=== PATIENT | male | born 1950 | race Caucasian/White ===

== ENCOUNTER 2020-06-30 13:10 | Inpatient (IN) | payer OTHER ==
[~2020-06-30] VITALS: Ht 177.8 cm; Wt 104.5 kg
[2020-06-30 14:41] LABS: Basophils # (auto) 0.1 10 ^3/uL (0-0.2)
[2020-06-30 14:43] LABS: Basophils % (auto) 0.8 % (0.0-2.0); Eosinophils # (auto) 0.1 10 ^3/uL (0-0.8); Eosinophils % (auto) 0.4 % (0.0-7.0); Hematocrit 52.4 % (41.0-53.0); Hemoglobin 17.6 g/dL (13.5-17.5); Lymphocytes # (auto) 1.3 10 ^3/uL (0.4-5.4); Lymphocytes % (auto) 9.7 % (10.0-50.0); Mean Corpuscular Hemoglobin 34.5 pg (28.0-32.0); Mean Corpuscular Hgb Conc. 33.7 g/dL (32.0-36.0); Mean Corpuscular Volume 102.7 fL (80.0-100.0); Monocytes # (auto) 0.9 10 ^3/uL (0-1.3); Monocytes % (auto) 6.7 % (0.0-12.0); Neutrophils % (auto) 82.4 % (37.0-80.0); Nucleated Red Blood Cells % 0.6 %; Platelet Count (auto) 207 10^3/uL (140-450); Red Blood Cells 5.11 10^6/uL (4.5-5.90); Red Cell Distribution Width 14.2 % (11.8-14.3); White Blood Cell 13.3 10^3/uL (4.4-10.8)
[2020-06-30 14:48] LABS: INR 1.24 (0.9-1.15)
[2020-06-30 15:09] LABS: Anion Gap 10 (5-15); Blood Alcohol < 3.0 mg/dL (0-5); Blood Urea Nitrogen 76 mg/dL (7-18); Calcium 8.7 mg/dL (8.5-10.1); Carbon Dioxide 23 mmol/L (21-32); Chloride 135 mmol/L (98-107); Glucose 126 mg/dL (74-106); Magnesium 2.9 mg/dL (1.6-2.6); Potassium 3.6 mmol/L (3.5-5.1)
[2020-06-30 15:13] LABS: Lactic Acid w/Reflex 2.6 mmol/L (0.4-2.0)
[2020-06-30 15:16] LABS: Alanine Aminotransferase 59 U/L (16-61); Alkaline Phosphatase 66 U/L (45-117); Aspartate Aminotransferase 47 U/L (15-37); Bilirubin, Total 0.9 mg/dL (0.2-1.0); Creatine Kinase IFCC 344 U/L (39-308); GFR African American 45 mL/min; GFR Non-African American 37 mL/min
[2020-06-30 15:19] LABS: Sodium 168 mmol/L (136-145)
[2020-06-30] MEDS ORDERED: PIPERACILLIN-TAZOB 3.375GM 100 ML IV ONE (15:45)
[2020-06-30] MEDS ORDERED: SODIUM CHLORIDE 0.9% 1,000 ML IV ONE (15:45)
[2020-06-30] MEDS ORDERED: ASPirin 325 MG TAB PO ONE (15:45)
[2020-06-30] MEDS ORDERED: NITROGLYCERIN 0.4 MG SL TAB SL PRN (16:45)
[2020-06-30] MEDS ORDERED: MORPHINE SULF INJ 2 MG/ML SYRINGE 1ML IV PRN ×2 (16:45→17:15)
[2020-06-30] MEDS ORDERED: TEMAZEPAM 15 MG CAP PO PRN (17:15)
[2020-06-30] MEDS ORDERED: ONDANSETRON HCL 4 MG/2 ML VIAL IV PRN (17:15)
[2020-06-30] MEDS ORDERED: traMADol HCL 50 MG TAB PO PRN (17:15)
[2020-06-30] MEDS: SOD CHL 0.45% 1,000 ML IV SCH (17:15)
[2020-06-30] MEDS ORDERED: ACETAMINOPHEN 500 MG TAB PO PRN (17:15)
[2020-06-30 17:42] LABS: Urine Bacteria FEW /hpf (None Seen); Urine Blood 1+ /uL (Negative); Urine Hyaline Cast MOD /lpf (0 - 2); Urine Mucus FEW (None Seen); Urine Specific Gravity 1.028 (1.001-1.035); Urine WBC 19 /hpf (0 - 3)
[2020-06-30 18:05] LABS: Amphetamine Screen, Urine NEGATIVE (NEGATIVE); Barbiturate Scree,Urine NEGATIVE (NEGATIVE); Benzodiazephine Screen, Urine NEGATIVE (NEGATIVE); Cannabinoid Screen, Urine NEGATIVE (NEGATIVE); Cocaine Screen, Urine NEGATIVE (NEGATIVE); Opiate Scree,Urine NEGATIVE (NEGATIVE); Phencyclidine Screen, Urine NEGATIVE (NEGATIVE)
[2020-06-30] MEDS: CLINDAMYCIN 600MG IV 50 ML IV SCH (19:39)
[2020-06-30] MEDS: FAMOTIDINE 20 MG TAB PO SCH (22:00)
[2020-07-01] MEDS: SOD CHL 0.45% 1,000 ML IV SCH ×3 (03:15→23:15)
[2020-07-01] MEDS: CLINDAMYCIN 600MG IV 50 ML IV SCH ×3 (06:00→22:00)
[2020-07-01 06:19] LABS: Basophils # (auto) 0.1 10 ^3/uL (0-0.2); Basophils % (auto) 0.5 % (0.0-2.0); Eosinophils # (auto) 0.1 10 ^3/uL (0-0.8); Eosinophils % (auto) 0.4 % (0.0-7.0); Hemoglobin 17.1 g/dL (13.5-17.5); Lymphocytes # (auto) 1.5 10 ^3/uL (0.4-5.4); Mean Corpuscular Hemoglobin 34.5 pg (28.0-32.0); Mean Corpuscular Hgb Conc. 33.6 g/dL (32.0-36.0); Mean Corpuscular Volume 102.7 fL (80.0-100.0); Monocytes % (auto) 6.4 % (0.0-12.0); Neutrophils # (auto) 12.3 10 ^3/uL (1.6-8.6); Neutrophils % (auto) 82.7 % (37.0-80.0); Nucleated Red Blood Cells % 0.5 %; Platelet Count (auto) 153 10^3/uL (140-450); Red Blood Cells 4.96 10^6/uL (4.5-5.90); Red Cell Distribution Width 14.3 % (11.8-14.3); White Blood Cell 14.9 10^3/uL (4.4-10.8)
[2020-07-01 06:36] LABS: Albumin 2.8 g/dL (3.4-5.0); Calcium 8.5 mg/dL (8.5-10.1); Potassium 3.7 mmol/L (3.5-5.1)
[2020-07-01 06:42] LABS: Bilirubin, Total 1.1 mg/dL (0.2-1.0); Total Protein 6.4 g/dL (6.4-8.2)
[2020-07-01 06:49] LABS: BUN/Creatinine Ratio 36.5
[2020-07-01] MEDS: cefTRIAXone 1GM/50ML D5W 50 ML IV SCH (08:09)
[2020-07-01] MEDS: ASPirin 81 mg TAB PO SCH (08:09)
[2020-07-01] MEDS: FAMOTIDINE 20 MG TAB PO SCH (08:10)
[2020-07-01] MEDS ORDERED: THIAMINE 100mg/ml INJ (200mg/2ml VIAL) IM ONE (16:15)
[2020-07-01] MEDS ORDERED: LORazepam 2MG/ML-1ML VIAL IV PRN (16:15)
[2020-07-01 16:48] LABS: Cholesterol 121 mg/dL (< 200)
[2020-07-01 16:50] LABS: HDL Cholesterol 46 mg/dL (40-59); LDL Cholesterol 58 mg/dL (< 100); Triglycerides 165 mg/dL (< 150)
[2020-07-01 16:54] LABS: Folate (Folic Acid) 6.68 ng/mL (5.38-24)
[2020-07-01] MEDS: ATORVASTATIN 20 MG TAB PO SCH (22:00)
[2020-07-01] MEDS: ENOXAPARIN SOD 80 MG/0.8ML SYRINGE SC SCH (23:33)
[2020-07-02] MEDS: CLINDAMYCIN 600MG IV 50 ML IV SCH ×3 (06:15→23:41)
[2020-07-02] MEDS: ENOXAPARIN SOD 80 MG/0.8ML SYRINGE SC SCH ×2 (09:37→23:41)
[2020-07-02] MEDS: FAMOTIDINE 20 MG TAB PO SCH (09:37)
[2020-07-02] MEDS: cefTRIAXone 1GM/50ML D5W 50 ML IV SCH (09:37)
[2020-07-02] MEDS: ASPirin 81 mg TAB PO SCH (09:37)
[2020-07-02] MEDS: SOD CHL 0.45% 1,000 ML IV SCH ×3 (09:37→19:00)
[2020-07-02] MEDS ORDERED: SOD CHL 0.45% 1,000 ML IV SCH (10:15)
[2020-07-02 10:32] LABS: Basophils % (auto) 0.4 % (0.0-2.0); Eosinophils # (auto) 0.2 10 ^3/uL (0-0.8); Eosinophils % (auto) 1.4 % (0.0-7.0); Hemoglobin 15.7 g/dL (13.5-17.5); Mean Corpuscular Hemoglobin 34.3 pg (28.0-32.0); Platelet Count (auto) 109 10^3/uL (140-450)
[2020-07-02 10:34] LABS: Basophils # (auto) 0.1 10 ^3/uL (0-0.2); Hematocrit 47.1 % (41.0-53.0); Lymphocytes # (auto) 1.8 10 ^3/uL (0.4-5.4); Mean Corpuscular Hgb Conc. 33.3 g/dL (32.0-36.0); Mean Corpuscular Volume 103.2 fL (80.0-100.0); Monocytes # (auto) 0.7 10 ^3/uL (0-1.3); Monocytes % (auto) 6.2 % (0.0-12.0); Neutrophils # (auto) 9.2 10 ^3/uL (1.6-8.6); Nucleated Red Blood Cells % 0.3 %; Red Blood Cells 4.57 10^6/uL (4.5-5.90); Red Cell Distribution Width 14.7 % (11.8-14.3)
[2020-07-02 10:45] LABS: Albumin 2.4 g/dL (3.4-5.0); Calcium 7.3 mg/dL (8.5-10.1); Potassium 3.6 mmol/L (3.5-5.1)
[2020-07-02 10:48] LABS: BUN/Creatinine Ratio 38.7; Bilirubin, Total 0.9 mg/dL (0.2-1.0); Total Protein 6.1 g/dL (6.4-8.2)
[2020-07-02] MEDS: SILVER SULFADIAZINE 1 % TOPICAL CREAM 50GM TOP SCH (10:57)
[2020-07-02] MEDS: ATORVASTATIN 20 MG TAB PO SCH (23:41)
[2020-07-03] MEDS: SOD CHL 0.45% 1,000 ML IV SCH ×5 (02:45→22:01)
[2020-07-03] MEDS: CLINDAMYCIN 600MG IV 50 ML IV SCH ×3 (06:38→22:01)
[2020-07-03 07:08] LABS: Basophils # (auto) 0 10 ^3/uL (0-0.2); Eosinophils # (auto) 0.3 10 ^3/uL (0-0.8); Hemoglobin 13.9 g/dL (13.5-17.5); Mean Corpuscular Volume 102.1 fL (80.0-100.0); Monocytes # (auto) 0.6 10 ^3/uL (0-1.3); Monocytes % (auto) 6.3 % (0.0-12.0)
[2020-07-03 07:12] LABS: Basophils % (auto) 0.2 % (0.0-2.0); Eosinophils % (auto) 3.6 % (0.0-7.0); Hematocrit 41.3 % (41.0-53.0); Lymphocytes % (auto) 21.3 % (10.0-50.0); Mean Corpuscular Hemoglobin 34.4 pg (28.0-32.0); Mean Corpuscular Hgb Conc. 33.7 g/dL (32.0-36.0); Neutrophils # (auto) 6.4 10 ^3/uL (1.6-8.6); Neutrophils % (auto) 68.6 % (37.0-80.0); Nucleated Red Blood Cells % 0.6 %; Platelet Count (auto) 96 10^3/uL (140-450); Red Blood Cells 4.04 10^6/uL (4.5-5.90); Red Cell Distribution Width 14.2 % (11.8-14.3); White Blood Cell 9.3 10^3/uL (4.4-10.8)
[2020-07-03 07:34] LABS: Potassium 3.6 mmol/L (3.5-5.1)
[2020-07-03 07:50] LABS: BUN/Creatinine Ratio 31.1; Bilirubin, Total 0.7 mg/dL (0.2-1.0); Calcium 7.4 mg/dL (8.5-10.1)
[2020-07-03] MEDS: FAMOTIDINE 20 MG TAB PO SCH (10:00)
[2020-07-03] MEDS: ENOXAPARIN SOD 80 MG/0.8ML SYRINGE SC SCH ×2 (10:57→22:01)
[2020-07-03] MEDS: SILVER SULFADIAZINE 1 % TOPICAL CREAM 50GM TOP SCH (10:57)
[2020-07-03] MEDS: ASPirin 81 mg TAB PO SCH (10:57)
[2020-07-03] MEDS: cefTRIAXone 1GM/50ML D5W 50 ML IV SCH (10:58)
[2020-07-03 18:34] VITALS: BP 129/62
[2020-07-03 20:00] VITALS: BP 122/63
[2020-07-03 21:54] VITALS: BP 122/63
[2020-07-03] MEDS: ATORVASTATIN 20 MG TAB PO SCH (22:01)
[2020-07-04] MEDS: SOD CHL 0.45% 1,000 ML IV SCH ×5 (03:02→21:20)
[2020-07-04 05:00] VITALS: BP 139/75
[2020-07-04] MEDS: CLINDAMYCIN 600MG IV 50 ML IV SCH ×3 (05:01→21:19)
[2020-07-04 06:33] LABS: Basophils # (auto) 0 10 ^3/uL (0-0.2); Basophils % (auto) 0.5 % (0.0-2.0); Eosinophils # (auto) 0.3 10 ^3/uL (0-0.8); Hematocrit 37.9 % (41.0-53.0); Hemoglobin 12.8 g/dL (13.5-17.5); Lymphocytes # (auto) 1.8 10 ^3/uL (0.4-5.4); Lymphocytes % (auto) 20.3 % (10.0-50.0); Mean Corpuscular Hemoglobin 34.4 pg (28.0-32.0); Mean Corpuscular Hgb Conc. 33.9 g/dL (32.0-36.0); Mean Corpuscular Volume 101.5 fL (80.0-100.0); Monocytes # (auto) 0.6 10 ^3/uL (0-1.3); Monocytes % (auto) 6.3 % (0.0-12.0); Neutrophils # (auto) 6.4 10 ^3/uL (1.6-8.6); Neutrophils % (auto) 69.9 % (37.0-80.0); Nucleated Red Blood Cells % 0.4 %; Platelet Count (auto) 102 10^3/uL (140-450); Red Blood Cells 3.73 10^6/uL (4.5-5.90); Red Cell Distribution Width 14.2 % (11.8-14.3); White Blood Cell 9.1 10^3/uL (4.4-10.8)
[2020-07-04 06:46] LABS: Albumin 1.9 g/dL (3.4-5.0); Calcium 7.2 mg/dL (8.5-10.1); Potassium 3.6 mmol/L (3.5-5.1)
[2020-07-04 06:49] LABS: BUN/Creatinine Ratio 29.7; Bilirubin, Total 0.6 mg/dL (0.2-1.0); Total Protein 4.7 g/dL (6.4-8.2)
[2020-07-04 07:45] VITALS: BP 148/71
[2020-07-04] MEDS: cefTRIAXone 1GM/50ML D5W 50 ML IV SCH (09:15)
[2020-07-04] MEDS: ENOXAPARIN SOD 80 MG/0.8ML SYRINGE SC SCH ×2 (09:15→21:20)
[2020-07-04] MEDS: ASPirin 81 mg TAB PO SCH (09:15)
[2020-07-04] MEDS: SILVER SULFADIAZINE 1 % TOPICAL CREAM 50GM TOP SCH (09:15)
[2020-07-04] MEDS: FAMOTIDINE 20 MG TAB PO SCH (09:15)
[2020-07-04] MEDS: FOLIC ACID 1 MG TAB PO SCH (13:14)
[2020-07-04] MEDS: MULTIPLE VITAMIN TAB PO SCH (13:14)
[2020-07-04] MEDS: THIAMINE HCL 100 MG TAB PO SCH (13:14)
[2020-07-04 15:46] VITALS: BP 131/72
[2020-07-04 20:00] VITALS: BP 154/79
[2020-07-04] MEDS: ATORVASTATIN 20 MG TAB PO SCH (21:19)
[2020-07-04 22:00] VITALS: BP 154/79
[2020-07-05] MEDS: SOD CHL 0.45% 1,000 ML IV SCH ×5 (04:00→23:51)
[2020-07-05 05:00] VITALS: BP 136/71
[2020-07-05 05:57] LABS: Mean Corpuscular Hgb Conc. 34.3 g/dL (32.0-36.0); Nucleated Red Blood Cells % 0.2 %
[2020-07-05 05:59] LABS: Basophils # (auto) 0 10 ^3/uL (0-0.2); Basophils % (auto) 0.5 % (0.0-2.0); Eosinophils # (auto) 0.2 10 ^3/uL (0-0.8); Hematocrit 38.4 % (41.0-53.0); Hemoglobin 13.2 g/dL (13.5-17.5); Lymphocytes # (auto) 1.5 10 ^3/uL (0.4-5.4); Lymphocytes % (auto) 18.5 % (10.0-50.0); Mean Corpuscular Hemoglobin 34.6 pg (28.0-32.0); Mean Corpuscular Volume 100.9 fL (80.0-100.0); Monocytes # (auto) 0.5 10 ^3/uL (0-1.3); Monocytes % (auto) 6.8 % (0.0-12.0); Neutrophils # (auto) 5.7 10 ^3/uL (1.6-8.6); Neutrophils % (auto) 71.2 % (37.0-80.0); Platelet Count (auto) 102 10^3/uL (140-450); Red Blood Cells 3.81 10^6/uL (4.5-5.90); Red Cell Distribution Width 13.7 % (11.8-14.3)
[2020-07-05] MEDS: CLINDAMYCIN 600MG IV 50 ML IV SCH ×3 (06:08→21:12)
[2020-07-05 06:19] LABS: Potassium 3.5 mmol/L (3.5-5.1)
[2020-07-05 06:28] LABS: Albumin 1.9 g/dL (3.4-5.0); BUN/Creatinine Ratio 26.1; Bilirubin, Total 0.6 mg/dL (0.2-1.0); Calcium 7.4 mg/dL (8.5-10.1)
[2020-07-05 08:00] VITALS: BP 126/69
[2020-07-05] MEDS: POTASSIUM CHL 20MEQ/100ML 100 ML IV SCH ×2 (09:15→15:05)
[2020-07-05] MEDS: cefTRIAXone 1GM/50ML D5W 50 ML IV SCH (10:52)
[2020-07-05] MEDS: ASPirin 81 mg TAB PO SCH (10:52)
[2020-07-05] MEDS: SILVER SULFADIAZINE 1 % TOPICAL CREAM 50GM TOP SCH (10:53)
[2020-07-05] MEDS: FAMOTIDINE 20 MG TAB PO SCH (10:53)
[2020-07-05] MEDS: MULTIPLE VITAMIN TAB PO SCH (10:53)
[2020-07-05] MEDS: FOLIC ACID 1 MG TAB PO SCH (10:53)
[2020-07-05] MEDS: THIAMINE HCL 100 MG TAB PO SCH (10:53)
[2020-07-05] MEDS: ENOXAPARIN SOD 80 MG/0.8ML SYRINGE SC SCH ×2 (10:53→21:13)
[2020-07-05 16:00] VITALS: BP 155/75
[2020-07-05 20:00] VITALS: BP 138/78
[2020-07-05] MEDS: ATORVASTATIN 20 MG TAB PO SCH (21:12)
[2020-07-05 22:00] VITALS: BP 138/78
[2020-07-06 05:00] VITALS: BP 156/66
[2020-07-06] MEDS: SOD CHL 0.45% 1,000 ML IV SCH ×4 (05:46→21:12)
[2020-07-06] MEDS: CLINDAMYCIN 600MG IV 50 ML IV SCH ×3 (05:46→21:13)
[2020-07-06 07:06] LABS: Albumin 1.9 g/dL (3.4-5.0); Calcium 7.4 mg/dL (8.5-10.1); Potassium 3.8 mmol/L (3.5-5.1)
[2020-07-06 07:12] LABS: BUN/Creatinine Ratio 19.1; Bilirubin, Total 0.6 mg/dL (0.2-1.0); Phosphorus 1.9 mg/dL (2.5-4.90)
[2020-07-06 07:33] VITALS: BP 136/68
[2020-07-06 08:00] VITALS: BP 138/78
[2020-07-06] MEDS: cefTRIAXone 1GM/50ML D5W 50 ML IV SCH (09:30)
[2020-07-06] MEDS: ASPirin 81 mg TAB PO SCH (09:36)
[2020-07-06] MEDS: THIAMINE HCL 100 MG TAB PO SCH (09:37)
[2020-07-06] MEDS: FAMOTIDINE 20 MG TAB PO SCH (09:37)
[2020-07-06] MEDS: ENOXAPARIN SOD 80 MG/0.8ML SYRINGE SC SCH ×2 (09:37→21:13)
[2020-07-06] MEDS: MULTIPLE VITAMIN TAB PO SCH (09:37)
[2020-07-06] MEDS: FOLIC ACID 1 MG TAB PO SCH (09:37)
[2020-07-06] MEDS: SILVER SULFADIAZINE 1 % TOPICAL CREAM 50GM TOP SCH (09:37)
[2020-07-06] MEDS: LINEZOLID 600MG TABLET PO SCH ×2 (13:00→21:13)
[2020-07-06 16:00] VITALS: BP 141/81
[2020-07-06 20:00] VITALS: BP 145/78
[2020-07-06] MEDS: ATORVASTATIN 20 MG TAB PO SCH (21:13)
[2020-07-06 22:00] VITALS: BP 145/78
[2020-07-07] MEDS: SOD CHL 0.45% 1,000 ML IV SCH ×3 (01:00→11:54)
[2020-07-07 05:00] VITALS: BP 146/73
[2020-07-07 08:00] VITALS: BP 147/71
[2020-07-07] MEDS: cefTRIAXone 1GM/50ML D5W 50 ML IV SCH (08:20)
[2020-07-07] MEDS: ASPirin 81 mg TAB PO SCH (09:31)
[2020-07-07] MEDS: MULTIPLE VITAMIN TAB PO SCH (09:32)
[2020-07-07] MEDS: FOLIC ACID 1 MG TAB PO SCH (09:32)
[2020-07-07] MEDS: THIAMINE HCL 100 MG TAB PO SCH (09:32)
[2020-07-07] MEDS: FAMOTIDINE 20 MG TAB PO SCH (09:32)
[2020-07-07] MEDS: ENOXAPARIN SOD 80 MG/0.8ML SYRINGE SC SCH (09:33)
[2020-07-07] MEDS: SILVER SULFADIAZINE 1 % TOPICAL CREAM 50GM TOP SCH (09:33)
[2020-07-07] MEDS: LINEZOLID 600MG TABLET PO SCH ×2 (10:21→22:19)
[2020-07-07] MEDS: CLINDAMYCIN 600MG IV 50 ML IV SCH ×3 (14:30→22:20)
[2020-07-07 16:00] VITALS: BP 137/73
[2020-07-07 22:00] VITALS: BP 159/74
[2020-07-07] MEDS: APIXABAN 5 MG TAB PO SCH (22:19)
[2020-07-07] MEDS: ATORVASTATIN 20 MG TAB PO SCH (22:19)
[2020-07-08 05:00] VITALS: BP 132/69
[2020-07-08] MEDS: CLINDAMYCIN 600MG IV 50 ML IV SCH ×2 (05:50→14:00)
[2020-07-08 08:00] VITALS: BP 117/62
[2020-07-08] MEDS: FOLIC ACID 1 MG TAB PO SCH (09:47)
[2020-07-08] MEDS: APIXABAN 5 MG TAB PO SCH (09:47)
[2020-07-08] MEDS: ASPirin 81 mg TAB PO SCH (09:47)
[2020-07-08] MEDS: THIAMINE HCL 100 MG TAB PO SCH (09:47)
[2020-07-08] MEDS: MULTIPLE VITAMIN TAB PO SCH (09:47)
[2020-07-08] MEDS: LINEZOLID 600MG TABLET PO SCH (09:48)
[2020-07-08] MEDS: FAMOTIDINE 20 MG TAB PO SCH (09:48)
[2020-07-08] MEDS: SILVER SULFADIAZINE 1 % TOPICAL CREAM 50GM TOP SCH (09:48)
[2020-07-08] MEDS: cefTRIAXone 1GM/50ML D5W 50 ML IV SCH (09:49)
[2020-07-08 13:32] VITALS: BP 145/64
== END 2020-07-08 14:31 | DRG 871 ==
LOC: EDBD 13:10 → ER 13:10 → TELE 13:11 → TELE-CENTR 07-03 18:48
PROVIDERS: ADMIT Internal Medicine; ATTEND Family Medicine
DX: A41.9 Sepsis, unspecified organism (principal); G93.41 Metabolic encephalopathy; N17.0 Acute kidney failure with tubular necrosis; I21.A1 Myocardial infarction type 2; L03.114 Cellulitis of left upper limb; E87.0 Hyperosmolality and hypernatremia; M62.82 Rhabdomyolysis; N39.0 Urinary tract infection, site not specified; I82.411 Acute embolism and thrombosis of right femoral vein; D68.9 Coagulation defect, unspecified; L03.116 Cellulitis of left lower limb; E86.0 Dehydration; E78.5 Hyperlipidemia, unspecified; I10 Essential (primary) hypertension; D53.9 Nutritional anemia, unspecified; F17.210 Nicotine dependence, cigarettes, uncomplicated; R29.6 Repeated falls; S80.01XA Contusion of right knee, initial encounter; S80.02XA Contusion of left knee, initial encounter; Z20.822 Contact with and (suspected) exposure to COVID-19; W18.39XA Other fall on same level, initial encounter; M10.9 Gout, unspecified; R79.89 Other specified abnormal findings of blood chemistry; E88.09 Other disorders of plasma-protein metabolism, not elsewhere classified; Z71.6 Tobacco abuse counseling; Z79.82 Long term (current) use of aspirin; Z79.899 Other long term (current) drug therapy; Y93.89 Activity, other specified; Y92.89 Other specified places as the place of occurrence of the external cause; Y99.8 Other external cause status
CPT/HCPCS: 36415; 70450; 70551; 71045; 72125; 73020; 73060; 73090; 73120; 73560; 80053; 80061; 80307; 80320; 81001; 82550; 82607; 82746; 83605; 83735; 83880; 84100; 84443; 84484; 85025; 85379; 85610; 85652; 87040; 87077; 87086; 87186; 87205; 87426; 93005; 93306; 93886; 93970; 93971; 95819; 97110; 97163; 97530; G0378; J0696; J2543; J3480; J3490